=== PATIENT | male | born 1950 | race Caucasian/White ===

== ENCOUNTER 2017-05-19 11:22 | Emergency (ER) | payer OTHER ==
[2017-05-19 11:33] VITALS: RESP 16; TEMP 98.8
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
[2017-05-19] MEDS ORDERED: IOPAMIDOL (ISOVUE-300) 100 ML BTL ONE (13:06)
[2017-05-19] MEDS ORDERED: HYDROCODONE/APAP 5/325 TAB PO ONE (13:41)
[2017-05-19 14:44] VITALS: BP 126/77; PULSE 67; O2SAT 93
== END 2017-05-19 14:43 | disposition home or self-care (01) ==
DX: S22.32XA Fracture of one rib, left side, initial encounter for closed fracture (principal); S42.002A Fracture of unspecified part of left clavicle, initial encounter for closed fracture; I10 Essential (primary) hypertension; V28.0XXA Motorcycle driver injured in noncollision transport accident in nontraffic accident, initial encounter; Y92.410 Unspecified street and highway as the place of occurrence of the external cause; Y99.8 Other external cause status; Y93.89 Activity, other specified
CPT/HCPCS: 82947-QW; A4565; Q9967